=== PATIENT | male | born 1965 | race Hispanic/Latino ===

== ENCOUNTER 2018-08-03 08:10 | Outpatient (RCR) | payer OTHER | END 2018-08-13 | LOC: M CR 08:10 | DX: Z98.61 Coronary angioplasty status (principal) | CPT/HCPCS: 93798 ==

== ENCOUNTER 2018-08-14 09:21 | Outpatient (RCR) | payer OTHER | END 2018-09-13 | LOC: M CR 09:21 | DX: Z98.61 Coronary angioplasty status (principal) | CPT/HCPCS: 93798 ==

== ENCOUNTER 2018-09-18 10:32 | Outpatient (RCR) | payer OTHER | END 2018-10-13 | LOC: M CR 10:32 | DX: Z98.61 Coronary angioplasty status (principal) ==

== ENCOUNTER 2018-10-24 10:39 | Emergency (ER) | payer OTHER ==
[2018-10-24] MEDS: ONDANSETRON 4MG/2ML VIAL (J2405) IV (11:50)
[2018-10-24 12:09] LABS: BASO % 0.1 % (0.0-1.0); HEMATOCRIT 46.9 % (42.0-52.0); HEMOGLOBIN 15.4 g/dl (13.5-17.5); IMMATURE GRANULOCYTE % 0.4 % (0-3.0); LYMPH # 0.4 10^3/uL (1.5-4.5); LYMPH % 4.4 % (24.0-44.0); MEAN CORPUSCULAR HEMOGLOBIN 29.8 pg (27.0-33.0); MEAN CORPUSCULAR HGB CONC 32.8 g/dl (32.0-36.5); MEAN CORPUSCULAR VOLUME 90.9 fl (80.0-96.0); MONO # 0.4 10^3/uL (0.0-0.8); MONO % 4.2 % (0.0-5.0); NEUTROPHILS # 9.1 10^3/uL (1.8-7.7); NEUTROPHILS % 90.9 % (36.0-66.0); PLATELET COUNT, AUTOMATED 365 10^3/uL (150-450); RED BLOOD COUNT 5.16 10^6/uL (4.30-6.10); RED CELL DISTRIBUTION WIDTH 12.4 % (11.5-14.5)
[2018-10-24 12:28] LABS: ALBUMIN/GLOBULIN RATIO 0.91 (1.00-1.93); ALKALINE PHOSPHATASE 53 U/L (45-117); ALT/SGPT 20 U/L (12-78); AMYLASE 91 U/L (25-115); ANION GAP 9 MEQ/L (8-16); AST/SGOT 22 U/L (7-37); BILIRUBIN,DIRECT 0.1 MG/DL (0.0-0.2); BILIRUBIN,TOTAL 0.5 MG/DL (0.2-1.0); BLOOD UREA NITROGEN 19 MG/DL (7-18); CALCIUM LEVEL 8.6 MG/DL (8.5-10.1); CARBON DIOXIDE LEVEL 25 MEQ/L (21-32); CHLORIDE LEVEL 106 MEQ/L (98-107); GLUCOSE, FASTING 100 MG/DL (70-100); LIPASE 147 U/L (73-393); SODIUM LEVEL 140 MEQ/L (136-145); TOTAL PROTEIN 8.4 GM/DL (6.4-8.2)
[2018-10-24] MEDS: NS 1,000 ML IV (12:40)
[2018-10-24] MEDS: ACETAMINOPHEN TAB 650MG DOSE (2X325MG) PO (13:32)
== END 2018-10-24 13:38 | disposition home or self-care (01) ==
LOC: M ED 10:39
DX: A05.9 Bacterial foodborne intoxication, unspecified (principal)
CPT/HCPCS: J2405

== ENCOUNTER 2018-11-08 10:41 | Outpatient (RCR) | payer OTHER ==
--- NOTE | 2018-10-23 15:20 | CARECAPL ---
Assessment Account #s: Re-Assessment II General Diagnoses: Stent Date of event: May 29, 2018 Physician: Dakota Yao Date Entered Program: Aug 28, 2018 Risk strat for cardiac event: Low Exercise Date: Oct 23, 2018 Assessment: Re-Assessment II Exercise Prescription Plan TO EDUCATE AND INCREASE ENDURANCE THROUGH MONITORED EXERCISE Modalities initiated: Cardio-Strider (METS=3.2/RPE=3), Arm Aerometer (METS=4.1/RPE=3), Dumbells (10#/RPE=3), Recumbent Bike (METS=4.0/RPE=3.5), Elliptimill (METS=4.5/RPE=3.5) Frequency: 3 Duration (Minutes) 30-60 minutes total exercise a day. 10-15 work intervals in minutes. 5 MIN PRN rest intervals in minutes. Functional Capacity Goal Sustained Metabolic Equivalent of a task (MET) goal of 6.0-7.0 for 15-20 minutes. Intensity: 3-Moderate Progression (METS) Increase by: 0.5 METS every: 5 sessions TOLERATED Angina with ex: No Resistance Training: Yes Weight (pounds): 10 Reps: 12-15 Hypertension: Yes Hypertension controlled with: Medication Resting 140/78 Peak Exercise BP 176/76 Medications Scheduled Aspirin (Ecotrin Low Strength), 81 MG PO DAILY, (Reported) Atorvastatin Calcium (Atorvastatin Calcium), 1 TAB PO DAILY, (Reported) Bisoprolol Fumarate (Bisoprolol Fumarate), 2.5 MG PO DAILY, (Reported) Clopidogrel Bisulfate (Plavix), 75 MG PO DAILY, (Reported) Fenofibrate (Tricor), 1 TAB PO DAILY, (Reported) Current BP 120/70 Med Change: No Intervention Home exercise: Type ([employer] GYM), Frequency (3-5 DAYS PER WEEK), Duration (30-60 MINUTES) Resistance Training: Yes Education: Self pulse, Ex safety, S/S to report, Low NA diet, BP medication, RPE Scale, Equipment orientation, warm up/cool down, Understand BP, Physical Active Target Goals Individual exercise Rx (1) BP 140/90 or 130/80 if DM or CKD (1) Aerobic active 30+min 5 days per week (1) Nutrition Date: Oct 23, 2018 Assessment: Re-Assessment II Lipid- med/supplement ATORVASTATIN Med Change: No Diabetes Diabetes: No Monitor Blood Sugar at home: No Medication Change: No Blood sugar in range: No Weight Management Weight (lbs): 200.2 Special Diet: low salt, low-fat Alcohol: special Current Weight (pounds): 200.2 Intervention Supervisor Filtration Consult: Yes Nurse/patient discussion: Yes Dietary Goals TO MAKE HEART HEALTHY CHOICES Diet Class: Yes Referral to Diabetes education: No Referral to lipid clinic: No Referral to weight mangement p: No Education Eating Healthy Education Goals Met: Yes Target goal LDL-C<100 if triglycerides are >200 Non-HDL-C should be <130 (1) LDL-C<70 for high risk patients (4) HbA1c<7% (1) BMI<25 Waist cir<40in M/<35in F (1) Education Date: Oct 23, 2018 Assessment: Re-Assessment II Family Support: Yes Tobacco use: No Tobacco Use Smokeless tobacco: No Intervention Referral to smoking cessation: No Individual education and couns: No Tobacco Adjunct: No Education class schedule given: No Attended education classes: No Education: CAD, Risk factors, med compliance, cardiac A&P, Angina S/S, Sexuality Education Goals Met: Yes Target Goals Complete cessation of tobacco use (1). Psychosocial Date: Oct 23, 2018 Assessment: Re-Assessment II Intervention Physician Consult: No Physician Referral: No Med Change: No Stress Management Class: No Uses Stress Management Skills: Yes Education Education: Coping Techniques, S/S depression, Relaxation Techniques Education Goals Met: Yes Target Goal Assess presence or absence of depression using a valid screening tool (1). Maximize coping skills (2). Positive support system (2). Patient/Program Goal Preventative Medication: Yes Aspirin, Yes Clopidogrel, Yes Beta blockade, Yes Statin/OTR lipid Lowering Fall Risk Assess: Yes (NOT A FALL RISK) Provider Assessment Session Number: 20 Provider Assessment: Proceed with rehab Luis Barton RN Oct 23, 2018 15:20
[~2018-11-08 10:41] MED LIST: ATOR80TA59 PO; BISO5TAB5 PO; ECOT81TA5 PO; PLAV1TAB2 PO; TRIC145T22 PO; ZANTTAB PO; ZOFR4TAB14 PO
== END 2018-11-13 ==
LOC: M CR 10:41
PROVIDERS: ATTEND Internal Medicine Cardiovascular Disease
DX: Z98.61 Coronary angioplasty status (principal)

== ENCOUNTER 2018-11-20 10:32 | Outpatient (RCR) | payer OTHER ==
--- NOTE | 2018-11-27 13:59 | CARECAPL ---
Assessment Account #s: Re-Assessment II (discharge assessment) General Diagnoses: Stent Date of event: May 29, 2018 Physician: Dakota Yao Allergies: Coded Allergies: No Known Allergies (Unverified , 10/24/18) Date Entered Program: Aug 28, 2018 Risk strat for cardiac event: Low Exercise Date: Nov 27, 2018 Assessment: Followup/Discharge Exercise Prescription Modalities initiated: Treadmill, Nustep, Arm Aerometer, Dumbells, Recumbent Bike, Elliptimill Frequency: 3 Duration (Minutes) minutes total exercise a day. work intervals in minutes. rest intervals in minutes. Functional Capacity Goal Sustained Metabolic Equivalent of a task (MET) goal of for minutes. Intensity: 3-Moderate Progression (METS) Increase by: METS every: sessions Angina with ex: No Hypertension: Yes Hypertension controlled with: Diet Resting /118/80 Peak Exercise BP 140/90 Meds see below Medications Scheduled Aspirin (Ecotrin Low Strength), 81 MG PO DAILY, (Reported) Atorvastatin Calcium (Atorvastatin Calcium), 1 TAB PO DAILY, (Reported) Bisoprolol Fumarate (Bisoprolol Fumarate), 2.5 MG PO DAILY, (Reported) Clopidogrel Bisulfate (Plavix), 75 MG PO DAILY, (Reported) Fenofibrate (Tricor), 1 TAB PO DAILY, (Reported) Ranitidine Hcl (Zantac 150 Maximum Streng), 1 TAB PO BID, (Reported) Scheduled PRN Ondansetron (Zofran Odt), 8 MG PO Q8HP PRN for NAUSEA Education Goals Met: Yes Target Goals Individual exercise Rx (1) BP 140/90 or 130/80 if DM or CKD (1) Aerobic active 30+min 5 days per week (1) Nutrition Date: Nov 27, 2018 Assessment: Followup/Discharge Med Change: No Medication Change: No Diet Access Tool: Rate your plate (follow up assessment not done) Referral to Diabetes education: No Referral to lipid clinic: No Referral to weight mangement p: No Education Eating Healthy Education Goals Met: Yes Target goal LDL-C<100 if triglycerides are >200 Non-HDL-C should be <130 (1) LDL-C<70 for high risk patients (4) HbA1c<7% (1) BMI<25 Waist cir<40in M/<35in F (1) Education Date: Nov 27, 2018 Assessment: Followup/Discharge Family Support: No Tobacco use: No Intervention Education class schedule given: Yes Attended education classes: Yes Education: CAD, Risk factors, med compliance, cardiac A&P, Angina S/S, S exuality Education Goals Met: Yes Target Goals Complete cessation of tobacco use (1). Psychosocial Date: Nov 27, 2018 Psych Test (Initial/Discharge) Tool Used: CESD (d/c assessment not done) Intervention Physician Consult: No Physician Referral: No Med Change: No Stress Management Class: Yes Uses Stress Management Skills: Yes Education Education: Coping Techniques, S/S depression, Relaxation Techniques Education Goals Met: Yes Target Goal Assess presence or absence of depression using a valid screening tool (1). Maximize coping skills (2). Positive support system (2). Fall Risk Assess: No Provider Assessment Session Number: 25 Provider Assessment: No changes (dishcharge assessment) Lorri Schmitz RN Nov 27, 2018 13:58
== END 2018-12-14 ==
LOC: M CR 10:32
PROVIDERS: ATTEND Internal Medicine Cardiovascular Disease
DX: Z98.61 Coronary angioplasty status (principal)